=== PATIENT | female | born 1975 | race Caucasian/White ===

== ENCOUNTER 2017-11-03 01:08 | Emergency (ER) | payer OTHER ==
--- NOTE | 2017-11-03 01:15 | PDOC ---
History of Present Illness - General Chief Complaint: Pain, Acute Stated Complaint: FELL 2 DAYS AGO HIT HEAD/UNSURE OF LOC History Source: Patient - History of Present Illness Initial Comments: 11/03/17 02:20 42F PMHx depression, alcohol abuse, suicide attempts, inpatient psych admissions (last yr at [facility], 1 month ago at [place]) with cc of headache and R chest pain s/p fall 3 days ago while intoxicated with alcohol. Headache is described as throbbing, some tenderness when she palpates the R side of her head, + 2 episodes of vomiting yesterday. Also reports that she has been very depressed and that she is overwhelmed with stressors in her life (bad divorce, work problems, custody problems, family problems), often wishes that she wouldn't wake up and doesn't want to live because "it's too much". Overdosed with benzos and etoh 1 month ago which prompted her admission to [place]. Has not been complaint with her antidepressant meds. Admits to etoh tonight. Past History - Past Medical History Allergies/Adverse Reactions: Allergies Allergy/AdvReac Type Severity Reaction Status Date / Time No Known Allergies Allergy Verified 11/03/17 01:11 Home Medications: Ambulatory Orders Duloxetine HCl [Cymbalta] 60 mg PO DAILY 11/03/17 - Suicide/Smoking/Psychosocial Hx Hx Alcohol Use: Yes Drug/Substance Use Hx: Yes Substance Use Type: Alcohol Review of Systems - Review of Systems Constitutional: No: Chills, Fever HEENTM: No: Eye Pain, Blurred Vision Cardiac (ROS): Yes: Chest Pain. No: Edema ABD/GI: Yes: Nausea, Vomiting Musculoskeletal: Yes: Back Pain (chronic) Integumentary: No: Bruising Neurological: Yes: Headache. No: Numbness, Paresthesia, Seizure, Tingling, Tremors, Weakness Psychiatric: Yes: Depression, Frequent Crying, Stressors, Emotional Problems *Physical Exam - Physical Exam General Appearance: Yes: Alcohol on Breath, Other (appears dysthymic, tearful during interview/exam) HEENT: positive: Normal ENT Inspection, Normal Voice, Symmetrical, TMs Normal, Other (no hemotympanum, no arriola sign). negative: Hearing Decreased Respiratory/Chest: positive: Lungs Clear, Normal Breath Sounds. 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 negative: Facial Droop, Numbness, Sensory Deficit ED Treatment Course - LABORATORY CBC & Chemistry Diagram: 11/03/17 01:00 11/03/17 01:00 - Additional Consults Time Called: 04:10 (No beds, recommended to call in the morning) Consult/PCP: [place] [facility] for possible psych transfer Time Called: 04:15 (No beds) Consult/PCP: [facility] Medical Decision Making - Medical Decision Making 11/03/17 02:34 42F presenting with headache and R sided cp after fall while drunk 3d ago. Also depressed, expressing wishes to . Will medically clear with CTH, CXR, labs, u tox and attempt to have pt accepted at [facility] psych ER for psych eval. All results currently pending. 11/03/17 04:[address] head reading: Brain parenchyma is normal in attenuation with no mass or hematoma. There is no midline shift. Rasmussen and white matter differentiation is normal. Ventricles are normal. Sulci and extra-axial CSF spaces are normal. Intracranial vascular structures are normal in attenuation. No calvarial fracture. Paranasal sinuses are normally aerated. IMPRESSION: normal head 11/03/17 05:[address] [facility], [facility] and [facility]. All are full/have no beds and are not accepting transfers at this time - they suggested to be contacted after 8am to re-investigate the bed situation. Pt is comfortable , sleeping. *DC/Admit/Observation/Transfer - Discharge Dispostion Condition at time of disposition: Stable - Referrals - Patient Instructions - Post Discharge Activity
[2017-11-03 01:37] VITALS: BP 122/76; PULSE 81; TEMP 97; BMI 21.7
[2017-11-03 02:15] LABS: BASO % 0.6 % (0-2.0); HEMATOCRIT 32.2 % (32.4-45.2); LYMPH % 24.8 % (8-40); MCH 32.5 pg (25.7-33.7); MCHC 34.3 g/dl (32.0-36.0); MEAN PLT VOLUME 7.6 fl (7.5-11.1); MONO % 6.5 % (3.8-10.2); NEUT % 66.1 % (42.8-82.8); PLATELET COUNT 310 K/MM3 (134-434); RBC 3.39 M/mm3 (3.60-5.2); RDW 13.2 % (11.6-15.6); WHITE BLOOD COUNT 10.4 K/mm3 (4.0-10.0)
[2017-11-03 02:26] LABS: COCAINE, UR NEGATIVE ng/ml (CUTOFF=300); METHADONE, UR NEGATIVE ng/ml (CUTOFF=300); OPIATES, URI NEGATIVE ng/ml (CUTOFF=300); PHENCYCLIDINE,URINE NEGATIVE ng/ml (CUTOFF=25); URINE AMPHETAMINES NEGATIVE ng/ml (CUTOFF=500); URINE BARBITURATES NEGATIVE ng/ml (CUTOFF=200); URINE BENZODIAZEPINES NEGATIVE ng/ml (CUTOFF=200)
[2017-11-03 02:42] LABS: SALICYLATE < 1.700 mg/dL
[2017-11-03 03:04] LABS: ANION GAP 11 (8-16); BLOOD UREA NITROGEN 10 mg/dl (7-18); CHLORIDE 109 mmol/L (98-107); CO2 23 mmol/L (22-28); CREATININE 0.6 mg/dl (0.6-1.3); GLUCOSE,RANDOM 92 mg/dl (74-106); POTASSIUM 3.5 mmol/L (3.5-5.1); SODIUM 143 mmol/L (136-145)
[2017-11-03 03:05] LABS: ALBUMIN 3.2 g/dl (3.5-5.0); BILIRUBIN,TOTAL 0.3 mg/dl (0.2-1.0); CALCIUM 8.1 mg/dl (8.4-10.2); SGOT/AST 25 U/L (10-42); SGPT/ALT 23 U/L (10-40)
[2017-11-03 03:06] LABS: ALK PHOS 62 U/L (32-92)
--- NOTE | 2017-11-03 08:33 | CON.PSY ---
Psychiatry Consult Chief Complaint: i am having difficulty with my marriage. Dramk last night andc said few things but I am not suicidal. Symptoms: reports: Depressed Mood, Suicidality - Previous Psychiatric Treatment Outpatient: Less than 6 mos ago Inpatient: One prior admission - Previous Substance Abuse Treatment Outpatient: None Inpatient: None - Reason for Previous Treatment Reason for Previous Treatment: Major Depression - Allergies Allergies: Allergies Allergy/AdvReac Type Severity Reaction Status Date / Time No Known Allergies Allergy Verified 11/03/17 01:11 - Current Living Status Usual Living Arrangement: Alone - Current Mental Status Evaluation Appearance: Disheveled Attitude: Cooperative - Affect Affect: Constrictive Appropriateness: Appropriate to Content - Mood Mood: Euthymic - Speech/Language Expressive: Coherent - Psychomotor Activity Psychomotor Activity: Slowed - Thought Process Thought Process: Intact - Thought Content Hallucinations: Absent Delusions: Absent - Cognition Attention: Alert Orientation: Time Memory, Immediate Recall: Intact Memory, Short Term: 3/3 Memory, Remote with Promptin/3 - Concentration Serial Sevens Intact: Yes Simple Calculations Intact: Yes - Abstraction Proverb Interpretation: Intact Judgement: Minimally Impaired - Insight Insight: Intact - Impulse Control Impulse Control: Minimally Impaired - Suicidal Ideation Suicidal Ideation: No - Homicidal Ideation Homicidal Ideation: No Assessment/Plan 1) patient is not suicidal at this time. 2) Discharge from Er, will follow up with pvt therapist.
--- NOTE | 2017-11-03 08:34 | PDOC ---
*Physical Exam - Vital Signs Last Vital Signs Temp Pulse Resp BP Pulse Ox 97 F L 81 16 122/76 98 11/03/17 01:32 11/03/17 01:32 11/03/17 01:32 11/03/17 01:32 11/03/17 01:32 - Physical Exam Comments: 11/03/17 08:33 The patient appears to be much more lucid this morning. She is fully alert and oriented, calm and rational. She denies any suicidal thoughts or intentions now. She states she has an appointment to see her therapist this evening, which she fully intends to keep. Because of her comments last night to Dr. Red, however, psychiatric consultation was obtained from Dr. Wharton. He evaluated the patient in the emergency room this morning and agreed that she did not appear to be suicidal or any danger to herself or others, and that outpatient follow-up was adequate. The patient is discharged fully ambulatory, with normal affect and normal mental status, no suicidal thoughts or ideations, to follow-up as directed. 11/03/17 08:49 ED Treatment Course - LABORATORY CBC & Chemistry Diagram: 11/03/17 01:00 11/03/17 01:00 - ADDITIONAL ORDERS Additional order review: Laboratory Results 11/03/17 11/03/17 11/03/17 01:38 01:00 01:00 Sodium 143 Potassium 3.5 Chloride 109 H Carbon Dioxide 23 Anion Gap 11 BUN 10 Creatinine 0.6 Creat Clearance w eGFR > 60 Random Glucose 92 Calcium 8.1 L Total Bilirubin 0.3 AST 25 ALT 23 Alkaline Phosphatase 62 Total Protein 6.0 L Albumin 3.2 L Beta HCG, Quant < 1.0 Urine HCG, Qual Negative Salicylates Opiates Screen Negative Methadone Screen Negative Barbiturate Screen Negative Phencyclidine Screen Negative Ur Amphetamines Screen Negative MDMA (Ecstasy) Screen Negative Benzodiazepines Screen Negative Cocaine Screen Negative U Marijuana (THC) Screen Negative Alcohol, Quantitative 11/03/17 01:00 Sodium Potassium Chloride Carbon Dioxide Anion Gap BUN Creatinine Creat Clearance w eGFR Random Glucose Calcium Total Bilirubin AST ALT Alkaline Phosphatase Total Protein Albumin Beta HCG, Quant Urine HCG, Qual Salicylates < 1.700 Opiates Screen Methadone Screen Barbiturate Screen Phencyclidine Screen Ur Amphetamines Screen MDMA (Ecstasy) Screen Benzodiazepines Screen Cocaine Screen U Marijuana (THC) Screen Alcohol, Quantitative 213.64 H* 11/03/17 01:00 RBC 3.39 L MCV 95.0 MCHC 34.3 RDW 13.2 MPV 7.6 Neutrophils % 66.1 Lymphocytes % 24.8 Monocytes % 6.5 Eosinophils % 2.0 Basophils % 0.6 - Additional Consults Time Called: 04:10 (No beds, recommended to call in the morning) Consult/PCP: [place] transfer [facility] for possible psych transfer Time Called: 04:15 (No beds) Consult/PCP: [facility] *DC/Admit/Observation/Transfer Diagnosis at time of Disposition: Head injury Qualifiers: Encounter type: initial encounter Qualified Code(s): S09.90XA - Unspecified injury of head, initial encounter Chest wall contusion Qualifiers: Encounter type: initial encounter Laterality: right Qualified Code(s): S20.211A - Contusion of right front wall of thorax, initial encounter - Discharge Dispostion Condition at time of disposition: Stable Admit: No - Referrals Referrals: Lio Wharton MD [Staff Physician] - - Patient Instructions Printed Discharge Instructions: DI for Closed Head Injury Additional Instructions: See your therapist today as scheduled. Return to ER immediately if symptoms recur. - Post Discharge Activity
== END 2017-11-03 08:39 | disposition home or self-care (01) ==
LOC: FER 01:08
DX: S09.90XA Unspecified injury of head, initial encounter (principal); S20.211A Contusion of right front wall of thorax, initial encounter; F10.99 Alcohol use, unspecified with unspecified alcohol-induced disorder; Z91.5 Personal history of self-harm; W18.39XA Other fall on same level, initial encounter; Y93.89 Activity, other specified; Y92.9 Unspecified place or not applicable
CPT/HCPCS: 36415; 70450-TC; 71046-TC-FY; 80053; 80307; 84702; 84703; 85025; 99281-25